=== PATIENT | male | born 1985 | race African-American/Black ===

== ENCOUNTER 2017-02-25 11:20 | Emergency (ER) | payer SELFPAY | END 2017-02-25 12:10 | disposition home or self-care (01) | LOC: MADERS 11:20 | DX: S46.912A Strain of unspecified muscle, fascia and tendon at shoulder and upper arm level, left arm, initial encounter (principal); F17.210 Nicotine dependence, cigarettes, uncomplicated; X50.9XXA Other and unspecified overexertion or strenuous movements or postures, initial encounter | CPT/HCPCS: 99283 ==

== ENCOUNTER 2017-10-15 10:03 | Emergency (ER) | payer BC, SELFPAY ==
--- NOTE | 2017-10-15 10:42 | RAD ---
LEFT FOOT 3 VIEWS: Date: 10/15/17 HISTORY: Left foot injury. FINDINGS: Lisfranc joint alignment is anatomic. Pes planus on the lateral view. No acute fracture, dislocation, or aggressive osseous erosions. IMPRESSION: 1. No acute osseous abnormalities are demonstrated. 2. Pes planus. POS: [facility]
== END 2017-10-15 11:08 | disposition home or self-care (01) ==
LOC: MADERS 10:03
DX: S90.32XA Contusion of left foot, initial encounter (principal); F17.210 Nicotine dependence, cigarettes, uncomplicated; W20.8XXA Other cause of strike by thrown, projected or falling object, initial encounter

== ENCOUNTER 2017-11-21 04:35 | Emergency (ER) | payer BC ==
[2017-11-21] MEDS ORDERED: Triple Antibiotic Oint 1 GM Packet ONE (06:03)
[2017-11-21] MEDS ORDERED: Naproxen 500 MG TAB ONE (06:16)
[2017-11-21] MEDS ORDERED: Adacel (T-DAP) 0.5 ML VIAL ONE (06:16)
[2017-11-21] MEDS ORDERED: Cephalexin 500 MG CAP ONE (06:16)
[2017-11-21] MEDS ORDERED: HYDROcodone/Acetaminophen 10/325 mg Tablet ONE (06:16)
--- NOTE | 2017-11-21 08:25 | RAD ---
THREE VIEWS OF THE RIGHT THUMB: INDICATION: Injury to the right thumb. IMPRESSION: There is a mildly displaced distal tuft fracture involving the thumb distal phalanx. No additional a cute osseous abnormality is evident. POS: [facility]
[2017-11-21] MEDS ORDERED: Sodium Chloride Irrig Solution 250 ML BOT ONE (08:32)
== END 2017-11-21 06:38 | disposition home or self-care (01) ==
LOC: MADERS 04:35
DX: S62.521A Displaced fracture of distal phalanx of right thumb, initial encounter for closed fracture (principal); F17.210 Nicotine dependence, cigarettes, uncomplicated; W20.8XXA Other cause of strike by thrown, projected or falling object, initial encounter
CPT/HCPCS: 12002; 90471; 90715; J2001

== ENCOUNTER 2018-01-23 10:30 | Emergency (ER) | payer BC, SELFPAY | END 2018-01-23 11:05 | disposition home or self-care (01) | LOC: MADERS 10:30 | DX: J06.9 Acute upper respiratory infection, unspecified (principal); F17.210 Nicotine dependence, cigarettes, uncomplicated | CPT/HCPCS: 99282 ==

== ENCOUNTER 2018-12-08 09:03 | Emergency (ER) | payer SELFPAY | END 2018-12-08 09:30 | disposition home or self-care (01) | LOC: MADERS 09:03 | DX: K02.9 Dental caries, unspecified (principal); F17.210 Nicotine dependence, cigarettes, uncomplicated | CPT/HCPCS: 99281 ==

== ENCOUNTER 2019-02-24 08:40 | Emergency (ER) | payer BC ==
[2019-02-24] MEDS ORDERED: Tetracaine 0.5% OPHTH SOLN/PF 4 ML BOT ONE (08:56)
[2019-02-24] MEDS ORDERED: Fluorescein Opthalmic Strip ONE (08:56)
[2019-02-24] MEDS ORDERED: Erythromycin Base 0.5% Ophth Oint 3.5 gm Tube ONE (09:43)
[2019-02-24] MEDS ORDERED: Adacel (T-DAP) 0.5 ML SYRINGE ONE (09:43)
== END 2019-02-24 10:05 | disposition home or self-care (01) ==
LOC: MADERS 08:40
DX: T15.02XA Foreign body in cornea, left eye, initial encounter (principal); F17.210 Nicotine dependence, cigarettes, uncomplicated
CPT/HCPCS: 65222; 90471; 90715

== ENCOUNTER 2021-01-17 22:11 | Emergency (ER) | payer BC ==
[2021-01-17] MEDS ORDERED: Fluorescein Opthalmic Strip ONE (22:21)
[2021-01-17] MEDS ORDERED: Tetracaine 0.5% PF 4 ML BOT ONE (22:21)
[2021-01-17] MEDS ORDERED: Erythromycin Base 0.5% Ophth Oint 3.5 gm Tube ONE (22:38)
== END 2021-01-17 22:47 | disposition home or self-care (01) ==
LOC: MADERS 22:11
DX: S05.01XA Injury of conjunctiva and corneal abrasion without foreign body, right eye, initial encounter (principal); F17.210 Nicotine dependence, cigarettes, uncomplicated; X58.XXXA Exposure to other specified factors, initial encounter
CPT/HCPCS: 99283

== ENCOUNTER 2021-02-18 09:25 | Emergency (ER) | payer BC ==
[2021-02-18] MEDS ORDERED: Acetaminophen 500 MG TAB ONE (10:06)
[2021-02-18] MEDS ORDERED: Promethazine 25 MG TAB ONE (10:06)
[2021-02-18 21:32] LABS: SARS-CoV-2 PCR by NAA Not Detected (NotDetected)
== END 2021-02-18 10:21 | disposition home or self-care (01) ==
LOC: MADERS 09:25
DX: R50.9 Fever, unspecified (principal); R52 Pain, unspecified; R05.9 Cough, unspecified; R09.81 Nasal congestion; R11.2 Nausea with vomiting, unspecified; Z20.822 Contact with and (suspected) exposure to COVID-19; F17.210 Nicotine dependence, cigarettes, uncomplicated
CPT/HCPCS: 99283; Q0169; U0003; U0005

== ENCOUNTER 2023-06-02 08:04 | Emergency (ER) | payer SELFPAY ==
[2023-06-02] MEDS ORDERED: Ondansetron ODT 4 MG TAB ONE (08:31)
[2023-06-02] MEDS ORDERED: Dicyclomine 20 MG/2 ML VIAL ONE (08:31)
== END 2023-06-02 09:15 | disposition home or self-care (01) ==
LOC: MADERS 08:04
DX: K52.9 Noninfective gastroenteritis and colitis, unspecified (principal); F17.210 Nicotine dependence, cigarettes, uncomplicated
CPT/HCPCS: 96372; 99283; Q0162